=== PATIENT | female | born 1970 | race Caucasian/White ===

== ENCOUNTER → 2018-10-29 | Outpatient (CLI) | payer OTHER | LOC: WOUNDCARE 09:17 | PROVIDERS: ATTEND Nurse Practitioner | DX: S41.102A Unspecified open wound of left upper arm, initial encounter (principal); I73.00 Raynaud's syndrome without gangrene; M32.9 Systemic lupus erythematosus, unspecified | CPT/HCPCS: 99203 ==

== ENCOUNTER → 2018-10-29 | Outpatient (CLI) | payer OTHER ==
--- NOTE | 2018-10-29 13:24 | Diagnostic Imaging Report ---
INDICATION: Limitations in range of motion. FINDINGS: No evidence for joint effusion. There is soft tissue irregularity and likely defect or ulceration posterior to the olecranon. No bony destruction. No opaque foreign body. No fracture. IMPRESSION: Apparent soft tissue defect or ulceration posteriorly. No acute bony abnormality, however, and no foreign body. Dictated by: Dictated on workstation # [id number]
--- NOTE | 2018-10-29 13:28 | Diagnostic Imaging Report ---
INDICATION: Raynaud's, painful limitations in range of motion. FINDINGS: Soft tissue irregularities about the forearm along its radial and ulnar aspect are noted. No opaque foreign body. No bony destruction or erosion. There is a soft tissue defect posterior to the olecranon. IMPRESSION: Soft tissue lesions noted. No osseous abnormality or opaque foreign body. Dictated by: Dictated on workstation # [id number]
--- NOTE | 2018-10-29 13:38 | Diagnostic Imaging Report ---
EXAMINATION: Left hand at 11:15 AM. INDICATION: Lupus, Raynaud syndrome, tightening of skin. Three views were obtained. COMPARISON: There are no prior studies available for comparison. FINDINGS: There is no fracture, dislocation or acute bony abnormality evident. There is no sign of bony destruction to suggest osteomyelitis either. There are two fairly well marginated 5 mm lucencies involving the base of the ulnar styloid and the medial aspect of the distal ulnar metaphysis. These findings are most likely due to cyst formation and are nonspecific in appearance. However, cystic lesions have been associated with lupus. There is mild narrowing of the radiocarpal joint. The soft tissues are unremarkable. IMPRESSION: 1. There is no evidence for an acute bony abnormality. 2. The cystic lesions involving the distal ulna are nonspecific but could be related to the patient's underlying diagnosis of lupus. Dictated by: Dictated on workstation # [id number]
== END ==
LOC: RAD 11:00
PROVIDERS: ATTEND Nurse Practitioner
DX: S41.102A Unspecified open wound of left upper arm, initial encounter (principal); I73.00 Raynaud's syndrome without gangrene; M32.9 Systemic lupus erythematosus, unspecified; M79.9 Soft tissue disorder, unspecified; M89.9 Disorder of bone, unspecified
CPT/HCPCS: 73080; 73090; 73130

== ENCOUNTER → 2018-11-14 | Outpatient (CLI) | payer OTHER | LOC: WOUNDCARE 09:53 | PROVIDERS: ATTEND Nurse Practitioner | DX: S41.102A Unspecified open wound of left upper arm, initial encounter (principal); I73.00 Raynaud's syndrome without gangrene; M32.9 Systemic lupus erythematosus, unspecified | CPT/HCPCS: 11042; 87070; 87075; 87077; 87205 ==